=== PATIENT | female | born 1965 | race Caucasian/White ===

== ENCOUNTER → 2024-02-17 08:30 | Outpatient (REF) | payer BC, SELFPAY ==
[2024-02-17 13:03] LABS: % Basophils 0.7 % (0-2); % Eosinophils 0.5 % (0-6); % Immature Granulocytes 0.2 % (0-0.5); % Lymphocytes 33.7 % (20.5-51.1); % Neutrophils 57.9 % (42.2-75.2); Absolute Monocytes 0.4 10^3/uL (0.1-0.6); Absolute Neutrophils 3.5 10^3/uL (1.4-6.5); Hematocrit 43.7 % (37.0-47.0); Hemoglobin 15.1 g/dL (12.0-16.0); Mean Corp Hgb Conc. 34.6 g/dL (33.0-37.0); Mean Corpuscular Hgb 32.8 pg (27.0-31.0); Mean Corpuscular Volume 94.8 fL (81.0-99.0); Mean Platelet Volume 11.4 fL (7.4-10.4); Nucleated Red Blood Cells % 0 %; Platelet Count 274 10^3/uL (130-400); Red Blood Cell Count 4.61 10^6/uL (4.20-5.40); Red Cell Dist. Width 12.7 % (11.5-14.5)
[2024-02-17 13:07] LABS: ALT (SGPT) 53 U/L (0-35); AST (SGOT) 41 U/L (14-36); Albumin 5.2 g/dl (3.5-5.0); Alkaline Phosphatase 77 U/L (38-126); Blood Urea Nitrogen 21 mg/dl (7-17); Carbon Dioxide 25 mmol/L (22-30); Chloride 101 mmol/L (98-107); Glucose 87 mg/dl (70-99); HDL Cholesterol 65 mg/dl; LDL Cholesterol, Calculated 209 mg/dl; Sodium 140 mmol/L (135-145); Total Bilirubin 1.6 mg/dl (0.2-1.3); Total Cholesterol 303 mg/dl (50-199); Triglyceride 145 mg/dl (10-149); Very Low Density Lipoprotein 29 mg/dl (0-30); eGFR > 60.00
[2024-02-17 13:33] LABS: TSH 6.29 uIU/ml (0.47-4.68)
[2024-02-17 14:40] LABS: Glycohemoglobin (HgbA1c) 5.6 % (4.0-5.6)
== END ==
LOC: HWLAB 08:30
PROVIDERS: ATTENDING PHYSICIAN Family Medicine
DX: Z00.00 Encounter for general adult medical examination without abnormal findings (principal)
CPT/HCPCS: 36415; 80053; 80061; 83036; 84443; 85025

== ENCOUNTER 2024-02-17 10:02 | Emergency (ER) | payer BC, SELFPAY ==
[2024-02-17 10:13] VITALS: BP 169/96
[2024-02-17 11:26] VITALS: BP 143/77
[2024-02-17] MEDS: XANAX 1 MG PO (11:55)
[2024-02-17 12:00] VITALS: BP 142/81
--- NOTE | 2024-02-17 12:43 | ED.GENMED ---
History of Present Illness
General
Chief Complaint: Blood Pressure Problem
Source: patient and family
Time Seen by Provider: 02/17/24 11:21
Travel History
Have you had any contact with someone who has COVID-19?: No
Do you have any symptoms of coronavirus? Fever > 100 degrees, chills, cough, shortness of breath, sore throat, loss of taste or smell, muscle aches, or headache?: No
History of Present Illness
History of Present Illness:
58-year-old female with past medical history of hypothyroidism presenting to the emergency department for evaluation of elevated blood pressure over the last few days accompanied with intermittent headache, feeling lightheaded, lack of p.o. intake
and has been generally very upset in the setting of her brother passing away unexpectedly last week. Patient's brother had a medical of about 3 weeks ago and had been living with the patient up until a few days ago when he went to back to living on
his own and then had another medical event and unfortunately . Patient is here with family who has been trying to help take care of of the patient and this time and they tried to go to the primary care provider today but was recommended
to come to the ER for further evaluation. Patient otherwise denies any chest pain, shortness of breath, palpitations, abdominal pain, nausea, vomiting.
Past History
Past History
ED Past Medical History: Hypothyroidism
ED Past Surgical History: Other
Social History
Tobacco: Non-smoker
Alcohol: None
Drug: None
Personal:
Living: with family
Employment: Employed
Review of Systems
Review of Systems
All Other Systems: ROS reviewed and negative except as documented in HPI and ROS
Phy Exam
Physical Exam
Physical Exam:
GENERAL: Alert , in no apparent distress
EYE: conjunctiva clear
NECK: Supple
ENT: o/p clr, mmm.
CARDIAC: Regular rate and rhythm
LUNGS: Clear breath sounds bilaterally, no acute respiratory distress, no wheezes/rales/rhonchi
NEUROLOGICAL: Alert and oriented
SKIN: Warm and dry, skin intact.
MUSCULOSKELETAL: well perfused.
PSYCH: Normal and appropriate interaction.
Scores
Heart Failure Risk
Heart Failure Risk Score: Not Applicable
Heart Score for Chest Pain Patients
STEMI patient?: Not applicable
Withdrawal Assessment of Alcohol
Withdrawal Assessment Completed?: Not applicable
Course
Orders/Labs/Results
Orders:
Orders
02/17/24 10:20
Electrocardiogram (*1) Urgent
Reason for Study: Chest Pain
EKG- Treatment ONCE
02/17/24 11:50
Alprazolam [Xanax] 1 mg PO NOW STA
Vital Signs
Initial and Last Documented VS:
Initial Vital Signs
Temp Pulse Resp BP Pulse Ox
99.1 F 109 20 169/96 100
02/17/24 10:13 02/17/24 10:13 02/17/24 10:13 02/17/24 10:13 02/17/24 10:13
Last Documented Vital Signs
Temp Pulse Resp BP Pulse Ox
99.1 F 78 20 142/81 94
02/17/24 10:13 02/17/24 12:45 02/17/24 12:00 02/17/24 12:00 02/17/24 12:45
MDM/Problems Addressed
Differential Diagnosis Includes:
Grief reaction, adjustment disorder, hypertensive urgency, I do not have concern for acute intracranial pathology
MDM/Problems Addressed:
58-year-old female presenting to the emergency department for evaluation of intermittently elevated blood pressure, lack of sleep, poor p.o. intake, headache and generally feeling unwell since her brother last week. Patient ultimately
stating she just wants something to slow down her mind and sleep. I suspect a grief reaction/adjustment disorder to be the most likely diagnosis and have less concern for any acute emergent processes. Patient had blood work done this morning at
the [facility] but these have yet to be resulted. Discussed risk first benefit of CT imaging but given patient's blood pressures currently 140/70 I have no suspicion for any acute intracranial pathologies. Patient ultimately declines this.
Will treat with 1 mg Xanax p.o. Will notify patient's primary care provider to help expedite outpatient management and follow-up.
*Pulse Oximetry
Patient hypoxic: no
*EKG
Interpreted by ED Provider?: Yes
Comparison EKG: no comparison EKG present
Heart Rate: 85
Rate: normal
Rhythm: sinus
[place]: normal axis
Interval: long QT
*Runner Man Interpretation
Rate: normal
Rhythm: sinus
*Critical Care Note
Total Time (30-74mins, 75-104mins- exclusive of procedures): Not Applicable
Patient Management
Discussion with other providers: PCP
Escalation/DeEscalation of care consider admission/obs:
12:38 PM: I notified patient's primary care provider and she states that she will ensure office staff calls patient this week for a follow-up visit. Agrees with treatment plan.
1:30 PM: Patient requesting to be discharged home. Multiple family members present and will be with the patient throughout the day. Patient has no SI or HI. She is happy with outpatient treatment plan. Again declines [facility].
Stable for discharge and aware of return precautions.
ED Attending Note
-
Portions of this chart may have been created with voice recognition software.� Occasional wrong word or��sound alike� substitutions may have occurred due to the inherent limitations of voice recognition software.
Discharge Plan
Departure
Patient Disposition: Home (Routine Discharge)
Date of Disposition: 02/17/24
Time of Disposition: 13:00
Patient with high blood pressure during this ER visit?: Yes
Discharge Problem:
Grief reaction
Prescriptions:
New
alprazolam [Xanax] 0.5 mg tablet
0.5 mg PO BID PRN (Reason: anxiety) Qty: 6 0RF
No Action
oxycodone-acetaminophen 5 MG/325 MG tablet
1 tab PO Q6HPRN PRN (Reason: pain) Qty: 14 0RF
Referrals:
Jacquelyn Jean Baptiste MD [Family Provider] -
Interventions
Interventions:
*Risk Screen - Suicide Last Done: 02/17/24 10:13
*General Assessment Last Done: 02/17/24 10:13
*Neglect/Abuse Screening Last Done: 02/17/24 10:13
*Nursing Disposition Last Done: 02/17/24 13:04
ED- Cardiac Assessment Last Done: 02/17/24 11:29
ED- Neurological Assessment Last Done: 02/17/24 11:29
ED- Pulmonary Assessment Last Done: 02/17/24 11:29
Discharge Date and Time
Discharge Date/Time: 02/17/24 13:04
Print Language: FRENCH
== END 2024-02-17 13:04 | disposition home or self-care (01) ==
LOC: EMR 10:02
PROVIDERS: EMERGENCY PHYSICIAN Emergency Medicine; FAMILY PHYSICIAN Family Medicine
DX: R51.9 Headache, unspecified (principal); R42 Dizziness and giddiness; Z63.4 Disappearance and death of family member; R03.0 Elevated blood-pressure reading, without diagnosis of hypertension; F43.20 Adjustment disorder, unspecified; E03.9 Hypothyroidism, unspecified; Z91.018 Allergy to other foods
CPT/HCPCS: 99283; 93005

== ENCOUNTER → 2024-04-16 06:23 | Day surgery (SDC) | payer BC, SELFPAY | LOC: GI 06:23 | PROVIDERS: ATTENDING PHYSICIAN Internal Medicine | DX: Z12.11 Encounter for screening for malignant neoplasm of colon (principal); D12.2 Benign neoplasm of ascending colon; D12.3 Benign neoplasm of transverse colon; K64.9 Unspecified hemorrhoids; Z86.010 Personal history of colon polyps; Z80.0 Family history of malignant neoplasm of digestive organs | CPT/HCPCS: 45385; 45380; 88305 ==

== ENCOUNTER → 2024-04-22 10:03 | Outpatient (REF) | payer BC, SELFPAY | LOC: HWRCS 10:03 | PROVIDERS: ATTENDING PHYSICIAN Internal Medicine Cardiovascular Disease; FAMILY PHYSICIAN Family Medicine | DX: I10 Essential (primary) hypertension (principal) | CPT/HCPCS: 93306 ==

== ENCOUNTER → 2024-05-01 07:33 | Outpatient (REF) | payer BC, SELFPAY ==
[2024-05-01 10:04] LABS: HDL Cholesterol 59 mg/dl; LDL Cholesterol, Calculated 170 mg/dl; Total Cholesterol 254 mg/dl (50-199); Triglyceride 127 mg/dl (10-149); Very Low Density Lipoprotein 25 mg/dl (0-30)
[2024-05-01 10:35] LABS: TSH Reflex To Free T4 5.34 uIU/ml (0.47-4.68)
[2024-05-01 11:05] LABS: Free T4 0.75 ng/dl (0.78-2.19)
== END ==
LOC: HWLAB 07:33
PROVIDERS: ATTENDING PHYSICIAN Family Medicine
DX: E78.2 Mixed hyperlipidemia (principal); E79.89 Other specified disorders of purine and pyrimidine metabolism
CPT/HCPCS: 36415; 80061; 84439; 84443

== ENCOUNTER → 2024-12-30 14:58 | Outpatient (REF) | payer BC, SELFPAY | LOC: HWRAD 14:58 | PROVIDERS: ATTENDING PHYSICIAN Obstetrics & Gynecology; FAMILY PHYSICIAN Family Medicine | DX: Z13.820 Encounter for screening for osteoporosis (principal) | CPT/HCPCS: 77080 ==

== ENCOUNTER → 2025-03-11 07:57 | Outpatient (REF) | payer BC, SELFPAY ==
[2025-03-11 09:36] LABS: % Eosinophils 1.7 % (0-6); % Immature Granulocytes 0.2 % (0-0.5); % Monocytes 8.2 % (1.7-9.3); % Neutrophils 48.9 % (42.2-75.2); Absolute Eosinophils 0.1 10^3/uL (0-0.7); Absolute Lymphocytes 1.7 10^3/uL (1.2-3.4); Absolute Monocytes 0.3 10^3/uL (0.1-0.6); Hematocrit 39.4 % (37.0-47.0); Hemoglobin 13.4 g/dL (12.0-16.0); Mean Corpuscular Hgb 32.8 pg (27.0-31.0); Mean Corpuscular Volume 96.6 fL (81.0-99.0); Mean Platelet Volume 10.8 fL (7.4-10.4); Nucleated Red Blood Cells % 0 %; Platelet Count 244 10^3/uL (130-400); Red Blood Cell Count 4.08 10^6/uL (4.20-5.40); Red Cell Dist. Width 13.2 % (11.5-14.5); White Blood Cell Count 4.2 10^3/uL (4.8-10.8)
[2025-03-11 09:55] LABS: ALT (SGPT) 33 U/L (0-35); AST (SGOT) 25 U/L (14-36); Albumin 4.6 g/dl (3.5-5.0); Alkaline Phosphatase 71 U/L (38-126); Blood Urea Nitrogen 16 mg/dl (7-17); Calcium 9.5 mg/dl (8.4-10.2); Carbon Dioxide 24 mmol/L (22-30); Chloride 111 mmol/L (98-107); Glucose 100 mg/dl (70-99); HDL Cholesterol 58 mg/dl; LDL Cholesterol, Calculated 176 mg/dl; Potassium 4.4 mmol/L (3.5-5.1); Sodium 143 mmol/L (135-145); Total Bilirubin 0.6 mg/dl (0.2-1.3); Total Cholesterol 257 mg/dl (50-199); Total Protein 6.9 g/dl (6.3-8.2); Triglyceride 119 mg/dl (10-149); Very Low Density Lipoprotein 23 mg/dl (0-30); eGFR > 60.00
[2025-03-11 10:52] LABS: TSH 4.98 uIU/ml (0.47-4.68)
[2025-03-11 11:12] LABS: Vitamin B12 452 pg/ml (239-931)
[2025-03-11 12:28] LABS: Glycohemoglobin (HgbA1c) 5.4 % (4.0-5.6)
== END ==
LOC: HWLAB 07:57
PROVIDERS: ATTENDING PHYSICIAN Family Medicine
DX: I10 Essential (primary) hypertension (principal); Z79.899 Other long term (current) drug therapy; F32.2 Major depressive disorder, single episode, severe without psychotic features
CPT/HCPCS: 36415; 80053; 80061; 82607; 83036; 84443; 85025